=== PATIENT | male | born 2000 | race Caucasian/White ===

== ENCOUNTER 2023-10-30 10:35 | Emergency (ER) | payer OTHER, SELFPAY ==
[2023-10-30 10:37] VITALS: BP 145/86; BMI 38.9
--- NOTE | 2023-10-30 10:49 | ED.MUSCINJ ---
HPI-Injury
General
Chief Complaint: Musculo-Skeletal Complaint
Time Seen by Provider: 10/30/23 10:37
Travel History
Have you had any contact with someone who has COVID-19?: No
Do you have any symptoms of coronavirus? Fever > 100 degrees, chills, cough, shortness of breath, sore throat, loss of taste or smell, muscle aches, or headache?: No
History of Present Illness-Injury
Initial Injury comments:
Patient presents with left knee pain and deformity. States he was putting on his shorts when he twisted and landed on the left knee. Has anterior left knee pain. There is no pain radiating down the leg. Denies injuries elsewhere.
Past History
Past History
ED Past Medical History: Psychiatric
Social History
Tobacco: Non-smoker
Personal: Single
Living: with family
Employment: Student
Phy Exam
Physical Exam
Physical Exam:
General: Patient in mild distress from pain, diaphoretic.
Head: NCAT
Neck, Normal in appearance, no swelling
Respiratory: No Respiratory distress
Abdomen: No distension
Ext: Left knee with anterior deformity and apparent patellar dislocation. Compartments are soft. Distal motor function and sensation. Pedal pulses intact normal color
Neuro: CANNON, AOx4
Psych: Normal affect
Skin: Normal color
Injury Course
Orders/Labs/Results
Orders:
Orders
10/30/23 10:48
HYDROmorphone [Dilaudid] 1 mg IV NOW STA
CR Knee - Left 1 Or 2 Views Urgent
Reason For Exam: knee pain and deformity
10/30/23 10:49
HYDROmorphone [Dilaudid] 1 mg .ROUTE .STK-MED ONE
10/30/23 10:56
0.9% Sodium Chloride 500 ml [Nss] 500 ml IV BOLUS
10/30/23 11:07
Splint [Braces/Immobilizers] As Directed
Type of Brace/Immobilizer: Knee immobilizer
Procedures
Joint/Fracture Reduction
Left Leg:
Indication for procedure:: patellar dislocation
Procedure completed by: Dr Kimbrough
If no, reason: Emergency procedure
Joint reduced: without anesthesia (+dilaudid)
Injury was: closed
Further treatement: no treatment needed
Post reduction exam: stable
Capillary Refill: normal
Peripheral Pulses: posterior tibial (left): 2+ and dorsalis pedis (left): 2+
Additional information:
patellar dislocation succesfully reduced. Xrays ordered, Knee immobilzer ordered
*Critical Care Note
Total Time (30-74mins, 75-104mins- exclusive of procedures): Not Applicable
ED Attending Note
ED Attending Note
ED Attending Note:
Superolateral patellar dislocation on the left. Reduced successfully at the bedside. X-ray with effusion without fracture. Patient placed in knee immobilizer and instructed toe-touch weightbearing with crutches. Instruction to follow-up with
orthopedist in the next week
-
Portions of this chart may have been created with voice recognition software.� Occasional wrong word or��sound alike� substitutions may have occurred due to the inherent limitations of voice recognition software.
Discharge Plan
Departure
Patient Disposition: Home (Routine Discharge)
Date of Disposition: 10/30/23
Time of Disposition: 12:21
Patient with high blood pressure during this ER visit?: No
Discharge Problem:
Closed dislocation of left patella
Instructions: Dislocated Kneecap (DC)
Referrals:
Lewis Todd MD [Active] - Follow up in 10 days (L patellar dislocation, reduced in ER, in knee immobilizer)
Tim Chester MD [Family Provider] -
Interventions
Interventions:
*Risk Screen - Suicide Last Done: 10/30/23 10:37
*General Assessment Last Done: 10/30/23 10:37
*Neglect/Abuse Screening Last Done: 10/30/23 10:37
ED- Fall Risk Assessment Last Done: 10/30/23 10:59
*ED COVID-19 Vaccine History Last Done: 10/30/23 10:37
*Nursing Disposition Last Done: 10/30/23 12:34
ED-Musculoskeletal Assessment Last Done: 10/30/23 10:59
Discharge Date and Time
Discharge Date/Time: 10/30/23 12:34
Print Language: CROATIAN
[2023-10-30] MEDS: DILAUDID 1 MG IV (10:51)
[2023-10-30] MEDS: NSS 500 IV (10:58)
[2023-10-30 12:33] VITALS: BP 133/81
== END 2023-10-30 12:34 | disposition home or self-care (01) ==
LOC: EMR 10:35
PROVIDERS: EMERGENCY PHYSICIAN Emergency Medicine; FAMILY PHYSICIAN Family Medicine
DX: S83.005A Unspecified dislocation of left patella, initial encounter (principal); X58.XXXA Exposure to other specified factors, initial encounter
CPT/HCPCS: 99283; 27560; 96374; 96361; 73560